=== PATIENT | male | born 1975 | race Caucasian/White ===

== ENCOUNTER 2020-04-18 07:06 | Day surgery (SDC) | payer OTHER ==
[~2020-04-18] VITALS: Ht 188 cm; Wt 99.1 kg
[2020-04-18] MEDS ORDERED: LACTATED RINGERS 1,000 ML IV SCH (08:31)
[2020-04-18] MEDS ORDERED: CHLORHEXIDINE 15 ML UDC MM STA (08:31)
[2020-04-18] MEDS ORDERED: PERCOCET (08:39)
[2020-04-18] MEDS ORDERED: ROBAXIN (08:39)
[2020-04-18] MEDS ORDERED: TRAMADOL (08:39)
[2020-04-18] MEDS ORDERED: VANCOMYCIN 1,000 MG ONE (08:56)
[2020-04-18] MEDS ORDERED: EPINEPHRINE 1 MG/ML, 1ML ONE (08:56)
[2020-04-18] MEDS ORDERED: BUPIVACAINE/PF 0.5% ONE (08:56)
[2020-04-18] MEDS ORDERED: BACITRACIN 50,000 UNIT ONE (08:56)
[2020-04-18] MEDS ORDERED: MORPHINE SULFATE 4 MG/ML, 1ML IVPush STA (09:20)
[2020-04-18] MEDS ORDERED: morphine SULFATE 10 MG/ML, 1ML ONE (09:29)
[2020-04-18] MEDS ORDERED: MIDAZOLAM 1 MG/ML, 2ML ONE (09:33)
[2020-04-18] MEDS ORDERED: ROCURONIUM 10MG/ML,5ML ONE (09:34)
[2020-04-18] MEDS ORDERED: FENTANYL PF 250 MCG/5ML ONE (09:34)
[2020-04-18] MEDS ORDERED: PROPOFOL 10 MG/ML, 20ML ONE (09:35)
[2020-04-18 09:40] VITALS: BP 199/127
[2020-04-18] MEDS ORDERED: ONDANSETRON 2MG/ML, 2ML ONE (09:52)
[2020-04-18] MEDS ORDERED: DEXAMETHASONE 4 MG/ML, 1ML ONE (10:05)
[2020-04-18] MEDS ORDERED: CEFAZOLIN 1,000 MG ONE ×2 (10:09)
[2020-04-18] MEDS ORDERED: METOPROLOL 1 MG/ML, 5ML ONE (10:13)
[2020-04-18] MEDS ORDERED: hydrALAzine 20 MG/ML, 1ML ONE ×2 (10:13→11:08)
[2020-04-18] MEDS ORDERED: KETOROLAC 30 MG/1 ML ONE (10:51)
[2020-04-18] MEDS ORDERED: ACETAMINOPHEN 650 MG/20.3 ML UDC ONE (11:25)
[2020-04-18] MEDS ORDERED: OXYcodone 5 MG/5 ML ORAL.SOL UDC ONE (11:26)
[2020-04-18] MEDS ORDERED: FENTANYL PF 100 MCG/2ML IV PRN (11:30)
[2020-04-18] MEDS ORDERED: MEPERIDINE/PF 25MG/0.5ML IVPush PRN (11:30)
[2020-04-18] MEDS ORDERED: ACETAMINOPHEN 325 MG TABLET PO PRN (11:30)
[2020-04-18] MEDS ORDERED: METHOCARBAMOL 1,000 MG in DEXTROSE 5% 100 ML IV PRN (11:30)
[2020-04-18] MEDS ORDERED: LABETALOL 5MG/ML, 20ML IV PRN (11:30)
[2020-04-18] MEDS ORDERED: PROMETHAZINE 25 MG/ML, 1ML IVPush PRN (11:30)
[2020-04-18] MEDS ORDERED: OXYcodone 5 MG/5 ML ORAL.SOL UDC PO PRN (11:30)
[2020-04-18] MEDS ORDERED: hydrALAzine 20 MG/ML, 1ML IV PRN (11:30)
[2020-04-18] MEDS ORDERED: FENTANYL PF 100 MCG/2ML ONE (11:33)
== END 2020-04-18 13:00 | disposition home or self-care (01) ==
LOC: OUT 07:06
PROVIDERS: ATTEND Neurological Surgery
DX: M51.16 Intervertebral disc disorders with radiculopathy, lumbar region (principal); M48.061 Spinal stenosis, lumbar region without neurogenic claudication; M21.371 Foot drop, right foot; Z20.828 Contact with and (suspected) exposure to other viral communicable diseases; Z79.899 Other long term (current) drug therapy
CPT/HCPCS: 63030; 72100; 87635; J0171; J0360; J0690; J1100; J1885; J2250; J2270; J2405; J2704; J2800; J3010; J3370; J7120